=== PATIENT | female | born 1995 | race Two or more races ===

== ENCOUNTER 2017-09-29 01:36 | Outpatient (CLI) | payer OTHER ==
[2017-09-29] MEDS ORDERED: PRENATAL 19 TA1 EACH PO (02:15)
== END 2017-09-29 14:09 | disposition home or self-care (01) ==
LOC: OBS/DEL 01:36
DX: O26.893 Other specified pregnancy related conditions, third trimester (principal); R10.2 Pelvic and perineal pain; Z34.83 Encounter for supervision of other normal pregnancy, third trimester

== ENCOUNTER 2017-11-07 16:11 | Inpatient (IN) | payer OTHER ==
[~2017-11-07] VITALS: Ht 157.5 cm; Wt 62.6 kg
[~2017-11-07 16:11] MED LIST: PRENATAL 19 TA1 EACH PO
[2017-11-20] MEDS ORDERED: PRENATAL TABLE1 EACH PO (09:43)
== END 2017-11-22 11:59 | DRG 775 ==
LOC: LDR 11-20 08:58 → OB/GYN 11-20 17:32 → LDR 11-25 16:10
PROC: 10E0XZZ Delivery of Products of Conception, External Approach (ICD-10-PCS; principal; 2017-11-20)
PROC: 0KQM0ZZ Repair Perineum Muscle, Open Approach (ICD-10-PCS; 2017-11-20)
PROC: 10907ZC Drainage of Amniotic Fluid, Therapeutic from Products of Conception, Via Natural or Artificial Opening (ICD-10-PCS; 2017-11-20)
PROC: 3E033VJ Introduction of Other Hormone into Peripheral Vein, Percutaneous Approach (ICD-10-PCS; 2017-11-20)
PROC: 4A033R1 Measurement of Arterial Saturation, Peripheral, Percutaneous Approach (ICD-10-PCS; 2017-11-20)
PROC: 4A1HXCZ Monitoring of Products of Conception, Cardiac Rate, External Approach (ICD-10-PCS; 2017-11-20)
DX: O70.1 Second degree perineal laceration during delivery (principal); Z37.0 Single live birth; Z3A.39 39 weeks gestation of pregnancy

== ENCOUNTER → 2017-11-26 | Emergency (ER) | payer OTHER ==
[~2017-11-26] VITALS: Ht 157.5 cm; Wt 55.3 kg
[~2017-11-26] MED LIST changes: +PRENATAL TABLE1 EACH PO
== END | disposition home or self-care (01) ==
LOC: ER 00:59
DX: R30.0 Dysuria (principal)